=== PATIENT | female | born 1990 | race American Indian/Alaskan Native ===

== ENCOUNTER 2016-07-30 00:28 | Emergency (ER) | payer SELFPAY ==
[2016-07-30 02:26] LABS: Bacteria,Urine 2+ /HPF (Negative); Bilirubin,Urine NEG (Negative); Blood,Urine SM (Negative); Ketones,Urine NEG (Negative); Leukocyte Esterase,Urine LG (Negative); Mucus,Urine 3+ /HPF; Nitrite,Urine NEG (Negative); Protein,Urine <15 mg/dL mg/dL (Negative)
[2016-07-30 05:00] LABS: Alanine Aminotransferase 10 units/L (7-56); Albumin 4.3 g/dL (3.9-5); Albumin/Globulin Ratio 1.1 %; Alkaline Phosphatase 50 units/L (35-129); Bilirubin,Total 0.3 mg/dL (0.1-1.2); Total Protein 8.3 g/dL (6.3-8.2)
[2016-07-30 05:32] LABS: Bilirubin,Direct < 0.2 mg/dL (0-0.2); Bilirubin,Indirect 0.1 mg/dL
[2016-07-30 05:36] LABS: Basophils % (Auto) 0.4 % (0.0-1.8); Eosinophils % (Auto) 0.4 % (0.0-4.3); Hematocrit 43.1 % (30.3-42.9); Hemoglobin 14.4 gm/dl (10.1-14.3); Mean Corpuscular HGB Conc 34 % (30-34); Mean Corpuscular Hemoglobin 31 pg (28-32); Mean Corpuscular Volume 92 fl (79-97); Red Cell Distribution Width 13.6 % (13.2-15.2); White Blood Count 6.6 K/mm3 (4.5-11.0)
[2016-07-30 05:39] LABS: Platelet Count 226 K/mm3 (140-440)
[2016-07-30] MEDS ORDERED: XYLOCAINE 1% MPF 5 mL INFILTRATI ONE (05:45)
[2016-07-30] MEDS ORDERED: ROCEPHIN IM ONE (05:45)
--- NOTE | 2016-07-30 05:48 | Emergency Department Report ---
ED Female HPI - General Chief complaint: Urogenital-Female Stated complaint: POSS UTI Time Seen by Provider: 07/30/16 05:29 Source: patient Mode of arrival: Ambulatory Limitations: No Limitations - History of Present Illness Initial comments: 25-year-old female presents with complaint of approximately 5 days of increased urinary frequency dysuria and minor right-sided flank pain. Patient denies any fever chills nausea or vomiting denies any abdominal pain. Patient is awake alert and oriented 3 does not appear to be in acute distress. Patient states she has had UTIs in the past. She is urinating at least twice as much as usual in the last 5 days denies any vaginal discharge Complaint: dysuria Onset/Timin -: days(s) Quality: burning Consistency: constant Improves with: none Worsens with: none - Related Data Previous Rx's Medication Instructions Recorded Last Taken Type Acetaminophen/Codeine [Tylenol #3] 1 tab PO Q6H PRN #20 tab 06/30/15 Unknown Rx Sulfamethoxazole/Trimethoprim 1 each PO BID #14 tablet 06/30/15 Unknown Rx [Bactrim DS TAB] Famotidine [Pepcid] 20 mg PO BID #20 tablet 01/04/16 Unknown Rx diphenhydrAMINE [Benadryl CAP] 25 mg PO Q6HR PRN #20 capsule 01/04/16 Unknown Rx methylPREDNISolone [Medrol] 4 mg PO DAILY #1 tab.ds.pk 01/04/16 Unknown Rx Levofloxacin [Levaquin TAB] 750 mg PO QDAY #5 tablet 07/30/16 Unknown Rx Allergies Allergy/AdvReac Type Severity Reaction Status Date / Time No Known Allergies Allergy Verified 06/30/15 09:11 ED Review of Systems ROS: Stated complaint: POSS UTI Other details as noted in HPI Constitutional: denies: chills, fever Eyes: denies: eye pain, eye discharge, vision change ENT: denies: ear pain, throat pain Respiratory: denies: cough, shortness of breath, wheezing Cardiovascular: denies: chest pain, palpitations Endocrine: no symptoms reported Gastrointestinal: denies: abdominal pain, nausea, diarrhea Genitourinary: dysuria, frequency. denies: urgency, discharge Musculoskeletal: denies: back pain, joint swelling, arthralgia Skin: denies: rash, lesions Neurological: denies: headache, weakness, paresthesias Psychiatric: denies: anxiety, depression Hematological/Lymphatic: denies: easy bleeding, easy bruising ED Past Medical Hx - Past Medical History Previous Medical History?: No - Surgical History Past Surgical History?: No - Social History Smoking Status: Never Smoker Substance Use Type: None - Medications Home Medications: Home Medications Medication Instructions Recorded Confirmed Last Taken Type Acetaminophen/Codeine [Tylenol #3] 1 tab PO Q6H PRN #20 tab 06/30/15 Unknown Rx Sulfamethoxazole/Trimethoprim 1 each PO BID #14 tablet 06/30/15 Unknown Rx [Bactrim DS TAB] Famotidine [Pepcid] 20 mg PO BID #20 tablet 01/04/16 Unknown Rx diphenhydrAMINE [Benadryl CAP] 25 mg PO Q6HR PRN #20 capsule 01/04/16 Unknown Rx methylPREDNISolone [Medrol] 4 mg PO DAILY #1 tab.ds.pk 01/04/16 Unknown Rx Levofloxacin [Levaquin TAB] 750 mg PO QDAY #5 tablet 07/30/16 Unknown Rx ED Physical Exam - General Limitations: No Limitations General appearance: alert, in no apparent distress - Head Head exam: Present: atraumatic, normocephalic - Eye Eye exam: Present: normal appearance, PERRL, EOMI - ENT ENT exam: Present: mucous membranes moist - Neck Neck exam: Present: normal inspection - Respiratory Respiratory exam: Present: normal lung sounds bilaterally. Absent: respiratory distress - Cardiovascular Cardiovascular Exam: Present: regular rate, normal rhythm. Absent: systolic murmur, diastolic murmur, rubs, gallop - GI/Abdominal GI/Abdominal exam: Present: soft, normal bowel sounds - Extremities Exam Extremities exam: Present: normal inspection, full ROM, normal capillary refill - Back Exam Back exam: Present: normal inspection, CVA tenderness (R) (minor right-sided CVA tenderness on clinical exam) - Neurological Exam Neurological exam: Present: alert, oriented X3, CN II-XII intact, normal gait - Psychiatric Psychiatric exam: Present: normal affect, normal mood - Skin Skin exam: Present: warm, dry, intact, normal color. Absent: rash ED Course Vital Signs 07/30/16 01:10 Temperature 98.1 F Pulse Rate 77 Respiratory 18 Rate Blood Pressure 118/72 Blood Pressure 118/72 [Left] O2 Sat by Pulse 99 Oximetry ED Medical Decision Making - Lab Data Result diagrams: 07/30/16 04:05 07/30/16 04:05 - Medical Decision Making A/P: UTI, clinical pyelonephritis 1-this patient does not appear toxic and is tolerating by mouth we'll give patient outpatient regimen of levofloxacin 750 mg 5 days 2-give 1 dose 1 g Rocephin in the ED 3-urine culture sent 4-patient advised to return to the ED for any inability to tolerate by mouth severe fever chills nausea vomiting or lethargy 5- follow-up with primary care doctor this week 6- I discussed lab values lab customer success representative there was an issue with their chemistry machine, chloride level is actually 102 not 60, they corrected value on [employer] report Critical care attestation.: If time is entered above; I have spent that time in minutes in the direct care of this critically ill patient, excluding procedure time. ED Disposition Clinical Impression: UTI (urinary tract infection) Qualifiers: Urinary tract infection type: acute pyelonephritis Qualified Code(s): N10 - Acute pyelonephritis Disposition: DISCHARGED TO HOME OR SELFCARE Is pt being admited?: No Does the pt Need Aspirin: No Condition: Stable Instructions: Urinary Tract Infection in Women (ED), Acute Pyelonephritis (ED) , Flank Pain (ED) Prescriptions: Levofloxacin [Levaquin TAB] 750 mg PO QDAY #5 tablet Referrals: PRIMARY CARE, [Primary Care Provider] - 3-5 Days [facility] [Outside] - 3-5 Days Time of Disposition: 05:49
[2016-07-30 06:18] LABS: Alanine Aminotransferase 10 units/L (7-56); Albumin 4.4 g/dL (3.9-5); Alkaline Phosphatase 49 units/L (35-129); Amylase 59 units/L (27-131); Anion Gap 28 mmol/L; Blood Urea Nitrogen 11 mg/dL (7-17); Carbon Dioxide 13 mmol/L (22-30); Potassium 4.2 mmol/L (3.6-5.0); Sodium 139 mmol/L (137-145); Total Protein 8.7 g/dL (6.3-8.2)
[2016-07-30] MEDS ORDERED: NACL 0.9% 1000 ML 1,000 ML IV ONE (06:30)
[2016-07-30 06:31] LABS: Chloride 102.4 mmol/L (98-107)
[2016-07-30 06:33] LABS: Bilirubin,Total 0.4 mg/dL (0.1-1.2); Glucose 81 mg/dL (65-100)
[2016-07-30 06:34] LABS: Lipase 16 units/L (13-60)
[2016-07-30 06:45] VITALS: BP 116/82
== END 2016-07-30 06:44 | disposition home or self-care (01) ==
LOC: ED 00:28
DX: N10 Acute pyelonephritis (principal)
CPT/HCPCS: 36415; 80053; 80074; 81001; 82150; 82550; 83690; 84703; 85025; 87086; 96372; 99283; J0696

== ENCOUNTER 2020-09-27 04:37 | Emergency (ER) | payer SELFPAY ==
[2020-09-27 04:54] VITALS: BP 123/72
--- NOTE | 2020-09-27 05:10 | Emergency Department Report ---
ED Extremity Problem HPI - General Chief complaint: Extremity Injury, Upper Stated complaint: RT HAND PAIN Time Seen by Provider: 09/27/20 04:58 Source: patient Mode of arrival: Ambulatory Limitations: No Limitations - History of Present Illness Initial comments: Patient is a 30-year-old female who presents emergency room complaints of right wrist pain that began 2 days ago. She denies any fall or injury. 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 She denies any swelling, numbness, weakness. No past medical history. No allergies medications. - Related Data Previous Rx's Medication Instructions Recorded Last Taken Type Acetaminophen/Codeine [Tylenol #3] 1 tab PO Q6H PRN #20 tab 06/30/15 Unknown Rx Sulfamethoxazole/Trimethoprim 1 each PO BID #14 tablet 06/30/15 Unknown Rx [Bactrim DS TAB] Famotidine [Pepcid] 20 mg PO BID #20 tablet 01/04/16 Unknown Rx diphenhydrAMINE [Benadryl CAP] 25 mg PO Q6HR PRN #20 capsule 01/04/16 Unknown Rx methylPREDNISolone [Medrol] 4 mg PO DAILY #1 tab.ds.pk 01/04/16 Unknown Rx levoFLOXacin [Levaquin TAB] 750 mg PO QDAY #5 tablet 07/30/16 Unknown Rx Naproxen [EC-Naproxen] 500 mg PO BID PRN #14 tablet. 09/27/20 Unknown Rx Allergies Allergy/AdvReac Type Severity Reaction Status Date / Time No Known Allergies Allergy Verified 06/30/15 09:11 ED Review of Systems ROS: Stated complaint: RT HAND PAIN Other details as noted in HPI Comment: All other systems reviewed and negative ED Past Medical Hx - Past Medical History Previous Medical History?: No - Surgical History Past Surgical History?: No - Social History Smoking Status: Never Smoker - Medications Home Medications: Home Medications Medication Instructions Recorded Confirmed Last Taken Type Acetaminophen/Codeine [Tylenol #3] 1 tab PO Q6H PRN #20 tab 06/30/15 Unknown Rx Sulfamethoxazole/Trimethoprim 1 each PO BID #14 tablet 06/30/15 Unknown Rx [Bactrim DS TAB] Famotidine [Pepcid] 20 mg PO BID #20 tablet 01/04/16 Unknown Rx diphenhydrAMINE [Benadryl CAP] 25 mg PO Q6HR PRN #20 capsule 01/04/16 Unknown Rx methylPREDNISolone [Medrol] 4 mg PO DAILY #1 tab.ds.pk 01/04/16 Unknown Rx levoFLOXacin [Levaquin TAB] 750 mg PO QDAY #5 tablet 07/30/16 Unknown Rx Naproxen [EC-Naproxen] 500 mg PO BID PRN #14 tablet. 09/27/20 Unknown Rx ED Physical Exam - General Limitations: No Limitations General appearance: alert, in no apparent distress - Head Head exam: Present: atraumatic, normocephalic - Eye Eye exam: Present: normal appearance - ENT ENT exam: Present: mucous membranes moist - Respiratory Respiratory exam: Absent: respiratory distress, accessory muscle use - Extremities Exam Extremities exam: Present: other (mild ttp over the right anterior wrist, no edema, no skin changes, no deformity, pain elicited upon phalens test, no joint laxity, FROM of the RUE, neurovascularly intact with strong 2+ radial pulse, no snuffbox ttp) - Neurological Exam Neurological exam: Present: alert, oriented X3 - Psychiatric Psychiatric exam: Present: normal affect, normal mood - Skin Skin exam: Present: warm, dry, intact ED Course Vital Signs 09/27/20 04:51 Temperature 98.5 F Pulse Rate 68 Respiratory 12 Rate Blood Pressure 123/72 O2 Sat by Pulse 99 Oximetry ED Medical Decision Making - Medical Decision Making Patient is a 30-year-old female who presents emergency room complaints of right wrist pain that began 2 days ago. She denies any fall or injury. 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 She denies any swelling, numbness, weakness. No past medical history. No allergies medications. Vitals are normal. On exam:mild ttp over the right anterior wrist, no edema, no skin changes, no deformity, pain elicited upon phalens test, no joint laxity, FROM of the RUE, neurovascularly intact with strong 2+ radial pulse, no snuffbox ttp. Examination appears most consistent with carpal tunnel versus tendinitis. Patient has had no acute trauma. She has no clinical signs of gout or septic joint. Patient given prescription for naproxen. Patient will be referred to orthopedic doctor. Advised patient Please take medication as prescribed. Please wear wrist splint [id number] while working. May ice for 15 minutes at a time, apply heating pad 15 minutes at a time, soak in Epsom salt. Follow- up with orthopedic doctor. Return to emergency room for new or worsening symptoms. Critical care attestation.: If time is entered above; I have spent that time in minutes in the direct care of this critically ill patient, excluding procedure time. ED Disposition Clinical Impression: Right wrist pain Disposition: TO HOME OR SELFCARE Is pt being admited?: No Does the pt Need Aspirin: No Condition: Stable Instructions: Carpal Tunnel Syndrome, [id number] Additional Instructions: Please take medication as prescribed. Please wear wrist splint [id number] while working. May ice for 15 minutes at a time, apply heating pad 15 minutes at a time, soak in Epsom salt. Follow-up with orthopedic doctor. Return to emergency room for new or worsening symptoms. Prescriptions: Naproxen [EC-Naproxen] 500 mg PO BID PRN #14 tablet.dr [id number] Reason: pain Referrals: KAMILA ALVAREZ MD [Staff Physician] - 2-3 Days [facility] [Provider Group] - 2-3 Days Time of Disposition: 05:08 Print Language: SINHALA
== END 2020-09-27 05:20 | disposition home or self-care (01) ==
LOC: ED 04:37
DX: M25.531 Pain in right wrist (principal); Z79.899 Other long term (current) drug therapy
CPT/HCPCS: 99282